=== PATIENT | male | born 1980 | race Caucasian/White ===

== ENCOUNTER 2021-07-01 23:22 | Emergency (ER) | payer OTHER ==
[~2021-07-01] VITALS: Ht 185.4 cm; Wt 97.5 kg
[2021-07-02] MEDS ORDERED: HYDROCODON-ACE1 EAC8 PO (00:42)
[2021-07-02 01:10] VITALS: BP 125/82
== END 2021-07-02 01:10 | disposition home or self-care (01) ==
LOC: M.ERS 23:22
DX: S90.112A Contusion of left great toe without damage to nail, initial encounter (principal); S90.121A Contusion of right lesser toe(s) without damage to nail, initial encounter; S80.811A Abrasion, right lower leg, initial encounter; S80.812A Abrasion, left lower leg, initial encounter; Z88.0 Allergy status to penicillin; V89.9XXA Person injured in unspecified vehicle accident, initial encounter; Y93.89 Activity, other specified; Y92.89 Other specified places as the place of occurrence of the external cause; Y99.8 Other external cause status